=== PATIENT | male | born 1960 | race Caucasian/White ===

== ENCOUNTER → 2016-06-24 | Outpatient (REF) | payer BC ==
[~2016-06-24] MED LIST: /VERA40TA PO; ASPI81TA83 OR; CLARINEX PO; FLEXERIL PO; IBUP400T PO; METO25TA2 OR; MIRALEX PO; PAXI10TA OR; PERC5TAB8 PO; PRAV40TA PO; PRAVASTATIN PO; TUMS500C OR; [UNRECOGNIZED DRUG - OTHER]
[2016-06-24 16:05] LABS: INR 1.01
== END ==
LOC: M LABDRAW1 15:36
PROVIDERS: ATTEND Physical Medicine & Rehabilitation
DX: Z01.812 Encounter for preprocedural laboratory examination (principal); M51.36 Other intervertebral disc degeneration, lumbar region

== ENCOUNTER → 2016-07-08 | Outpatient (REF) | payer BC | LOC: M LABDRAW1 15:50 | PROVIDERS: ATTEND Nurse Practitioner Women's Health | DX: Z12.5 Encounter for screening for malignant neoplasm of prostate (principal) | CPT/HCPCS: 36415; G0103 ==

== ENCOUNTER → 2017-01-24 | Outpatient (CLI) | payer BC ==
--- NOTE | 2017-01-24 12:02 | REP ---
Clinical: Pain. Technique: AP, lateral, bilateral oblique views of the right wrist. Findings: Degenerative changes include increased sclerosis to the radial surface with decreased radiocarpal joint space as well as evidence for old ulnar styloid fracture. Remainder examination appears relatively normal for age. Impression: Mild degenerative changes and suggestions for old trauma. Signed by Gerard Menendez MD 01/24/2017 11:54 A
== END ==
LOC: M LRY 11:31
PROVIDERS: ATTEND Nurse Practitioner Family
DX: M19.031 Primary osteoarthritis, right wrist (principal); Z87.81 Personal history of (healed) traumatic fracture

== ENCOUNTER → 2017-11-17 | Outpatient (CLI) | payer BC ==
[2017-11-17 11:44] LABS: PLATELET COUNT, AUTOMATED 239 10^3/uL (150-450)
[2017-11-17 12:13] LABS: INR 0.93; PROTHROMBIN TIME 12.6 SECONDS (12.1-14.4)
[2017-11-17 12:14] LABS: PARTIAL THROMBOPLASTIN TIME 29.1 SECONDS (25.4-37.6)
== END ==
LOC: M LAB 11:28
DX: M51.26 Other intervertebral disc displacement, lumbar region (principal)
CPT/HCPCS: 85049

== ENCOUNTER → 2018-08-25 | Outpatient (REF) | payer BC ==
[~2018-08-25] MED LIST changes: -/VERA40TA PO; +BLOOD PRESSURE MED; +CETI10TA PO; +FLON1SPR NARES; +HYDR-3715 PO; +MELO15TA28 PO; +ROBA500T PO; +VERA1TAB23 PO
[2018-08-25 17:49] LABS: PARTIAL THROMBOPLASTIN TIME 32.2 SECONDS (25.4-37.6); PROTHROMBIN TIME 13.3 SECONDS (12.1-14.4)
== END ==
LOC: M LABDRAW1 15:45
PROVIDERS: ATTEND Physician Assistant
DX: Z01.812 Encounter for preprocedural laboratory examination (principal)

== ENCOUNTER → 2019-06-19 | Outpatient (REF) | payer BC, OTHER ==
[2019-06-19 15:57] LABS: PLATELET COUNT, AUTOMATED 305 10^3/uL (150-450)
[2019-06-19 16:08] LABS: INR 1.02; PROTHROMBIN TIME 13.1 SECONDS (11.8-14.0)
[2019-06-19 16:09] LABS: PARTIAL THROMBOPLASTIN TIME 31.4 SECONDS (25.0-38.4)
== END ==
LOC: M LABDRAW1 15:24
PROVIDERS: ATTEND Physical Medicine & Rehabilitation
DX: Z01.818 Encounter for other preprocedural examination (principal); M47.817 Spondylosis without myelopathy or radiculopathy, lumbosacral region

== ENCOUNTER → 2021-08-13 | Outpatient (CLI) | payer BC | LOC: M PLAIMG 08:01 | PROVIDERS: ATTEND Physical Medicine & Rehabilitation | DX: M51.26 Other intervertebral disc displacement, lumbar region (principal) ==

== ENCOUNTER → 2022-05-20 | Outpatient (CLI) | payer OTHER | LOC: M LAB 15:16 | PROVIDERS: ATTEND Nurse Practitioner Family | DX: Z13.88 Encounter for screening for disorder due to exposure to contaminants (principal) ==

== ENCOUNTER → 2022-07-22 | Outpatient (CLI) | payer BC, OTHER ==
[2022-07-22 16:02] LABS: PLATELET COUNT, AUTOMATED 263 10^3/uL (150-450)
[2022-07-22 16:13] LABS: ERYTHROCYTE SEDIMENTATION RATE 21 mm/hr (0-20)
[2022-07-22 16:14] LABS: INR 0.99; PROTHROMBIN TIME 13.3 SECONDS (12.5-14.5)
[2022-07-22 16:15] LABS: PARTIAL THROMBOPLASTIN TIME 29.7 SECONDS (24.8-34.2)
== END ==
LOC: M PLALAB 12:01
PROVIDERS: ATTEND Physical Medicine & Rehabilitation
DX: M47.816 Spondylosis without myelopathy or radiculopathy, lumbar region (principal); Z79.01 Long term (current) use of anticoagulants

== ENCOUNTER → 2022-08-12 | Outpatient (CLI) | payer BC, OTHER ==
[2022-08-12 15:44] LABS: PLATELET COUNT, AUTOMATED 251 10^3/uL (150-450)
[2022-08-12 16:16] LABS: ERYTHROCYTE SEDIMENTATION RATE 32 mm/hr (0-20)
[2022-08-12 16:31] LABS: INR 0.94; PROTHROMBIN TIME 12.8 SECONDS (12.5-14.5)
[2022-08-12 16:32] LABS: PARTIAL THROMBOPLASTIN TIME 27.1 SECONDS (24.8-34.2)
== END ==
LOC: M PLALAB 13:23
PROVIDERS: ATTEND Physical Medicine & Rehabilitation
DX: M47.816 Spondylosis without myelopathy or radiculopathy, lumbar region (principal)

== ENCOUNTER → 2022-09-03 | Outpatient (CLI) | payer BC | LOC: M WUC 10:45 | DX: M79.602 Pain in left arm (principal) ==

== ENCOUNTER 2023-05-17 23:07 | Emergency (ER) | payer BC, OTHER ==
[~2023-05-17] VITALS: Ht 177.8 cm; Wt 96.8 kg
[2023-05-17] MEDS ORDERED: PENI500T PO (23:23)
[2023-05-17] MEDS ORDERED: ALBU6.7H6 INH (23:23)
[2023-05-17] MEDS ORDERED: TOPR50TA PO (23:23)
[2023-05-18 00:14] LABS: RSV AMPLIFICATION POSITIVE (NEGATIVE)
[2023-05-18 05:00] VITALS: BP 144/80; TEMP 99.1; O2SAT 98
[2023-05-18] MEDS ORDERED: ALBU6.7H6 INH (06:40)
[2023-05-18] MEDS ORDERED: BENZ200C70 PO (06:40)
== END 2023-05-18 06:59 | disposition home or self-care (01) ==
LOC: M ED 23:07 → EDBD 23:07 → M ED 05-18 06:59
DX: J02.0 Streptococcal pharyngitis (principal); B97.4 Respiratory syncytial virus as the cause of diseases classified elsewhere; I10 Essential (primary) hypertension; G43.909 Migraine, unspecified, not intractable, without status migrainosus; Z88.8 Allergy status to other drugs, medicaments and biological substances; Z79.52 Long term (current) use of systemic steroids; Z79.2 Long term (current) use of antibiotics; Z79.899 Other long term (current) drug therapy

== ENCOUNTER 2025-04-18 15:48 | Observation (INO) | payer OTHER ==
[~2025-04-18] VITALS: Ht 177.8 cm; Wt 100.1 kg
[~2025-04-18 15:48] MED LIST changes: +ALBU6.7H6 INH; +BENZ200C70 PO; +PENI500T PO; +TOPR50TA PO
[2025-04-18 16:12] LABS: BASO # 0.1 10^3/uL (0.0-0.2); BASO % 0.6 % (0.0-1.0); EOS # 0.3 10^3/uL (0.0-0.5); EOS % 3.3 % (0.0-3.0); LYMPH # 1.6 10^3/uL (1.5-5.0); LYMPH % 19.5 % (24.0-44.0); MONO # 0.8 10^3/uL (0.0-0.8); MONO % 9.9 % (2.0-8.0); NEUTROPHILS # 5.4 10^3/uL (1.5-8.5); NEUTROPHILS % 66.6 % (36.0-66.0); PLATELET COUNT, AUTOMATED 242 10^3/uL (150-450)
[2025-04-18] MEDS ORDERED: ISOVUE-370 76% 100 ML VIAL As Ordered ONE (16:34)
[2025-04-18 16:37] LABS: INR 1.02
[2025-04-18 16:43] LABS: ALT/SGPT 30.0 U/L (7.0-40); AST/SGOT 21.0 U/L (<34); CK-MB VALUE MASS 2.6 NG/ML (<3.6); CPK CREATINE PHOSPHOKINASE 136.0 U/L (46-171); MB/CK RELATIVE INDEX 1.91 (< OR =4)
[2025-04-18] MEDS: MORPHINE 4 MG/ML 1 ML VIAL IV PRN (17:45)
[2025-04-18] MEDS ORDERED: ALBU8.5H INH (19:34)
[2025-04-18] MEDS ORDERED: ISOS1TAB35 PO (19:34)
[2025-04-18] MEDS ORDERED: ASPI81TA26 PO (19:34)
[2025-04-18] MEDS ORDERED: VITA100093 PO (19:34)
[2025-04-18] MEDS ORDERED: ROSU20TA86 PO (19:34)
[2025-04-18] MEDS ORDERED: HOME MED LIST COMPLETE! XX SCH (19:35)
[2025-04-18] MEDS: NS (Normal Saline) 0.9% 1,000 ML IV SCH (22:34)
[2025-04-18] MEDS: SIMETHICONE 40MG/0.6ML DROPS 30ML PO SCH (22:34)
[2025-04-18] MEDS: PANTOPRAZOLE 40MG VIAL IV ONE (22:34)
[2025-04-19] MEDS ORDERED: ALBUTEROL 90 MCG/ACT 8 GM HFA INHALER INH PRN (07:15)
[2025-04-19 08:08] LABS: CALCIUM LEVEL 8.3 MG/DL (8.3-10.6); CARBON DIOXIDE LEVEL 28 MMOL/L (20-31); CHLORIDE LEVEL 105 MMOL/L (98-107); CREATININE FOR GFR 0.72 MG/DL (0.70-1.30); GLOMERULAR FILTRATION RATE > 90.0 (>49); MAGNESIUM LEVEL 2.0 MG/DL (1.8-2.4); POTASSIUM SERUM 4.1 MMOL/L (3.5-5.1); SODIUM LEVEL 142 MMOL/L (136-145)
[2025-04-19] MEDS: ENOXAPARIN 40 MG/0.4 ML SYRINGE (J1650 PER 10MG) SC SCH (08:47)
[2025-04-19] MEDS: ASPIRIN 81 MG ENTERIC TABLET PO SCH (08:48)
[2025-04-19] MEDS: ROSUVASTATIN 10 MG TAB PO SCH (08:48)
[2025-04-19] MEDS: METOPROLOL SUCC. 50 MG *XL* TAB PO SCH (08:48)
[2025-04-19] MEDS: ISOSORBIDE MONONITRATE 30 MG XR TAB PO SCH (08:49)
[2025-04-19] MEDS: FLUTICASONE PROPIONATE 0.05% NASAL SPRAY 16 GM NARES SCH (09:00)
[2025-04-19] MEDS: ACETAMINOPHEN 325 MG/10.15 ML UDC GT PRN (11:09)
[2025-04-19] MEDS: KETOROLAC 30 MG/ML 1 ML VIAL IV ONE (13:14)
[2025-04-19 15:15] VITALS: BP 126/76; TEMP 97.8; O2SAT 97
[2025-04-20] MEDS ORDERED: FLUZONE VACCINE TRI PF(25-26) 0.5ML SYRINGE IM.IMMUN ONE (09:00)
== END 2025-04-19 13:55 | disposition home or self-care (01) ==
LOC: M ED 15:48 → M ED INP 18:58 → INTOOBSV 18:58
PROVIDERS: ADMIT Student in an Organized Health Care Education/Training Program; ATTEND Student in an Organized Health Care Education/Training Program
DX: K52.9 Noninfective gastroenteritis and colitis, unspecified (principal); I25.10 Atherosclerotic heart disease of native coronary artery without angina pectoris; Z98.61 Coronary angioplasty status; I10 Essential (primary) hypertension; E78.5 Hyperlipidemia, unspecified; G47.33 Obstructive sleep apnea (adult) (pediatric); M19.90 Unspecified osteoarthritis, unspecified site; K21.9 Gastro-esophageal reflux disease without esophagitis; Z79.82 Long term (current) use of aspirin; Z79.899 Other long term (current) drug therapy; Z88.8 Allergy status to other drugs, medicaments and biological substances
CPT/HCPCS: 36415; 71045; 71275; 74018; 74177; 80047; 80048; 80076; 82550; 82553; 83605; 83690; 83735; 84484; 85025; 85610; 93005; 93041; 94760; 96361; 96372; 96374; 96375; 97161; 99285; G0378; J1650; J1885; J2470; Q9967